=== PATIENT | female | born 1990 | race Caucasian/White ===

== ENCOUNTER → 2018-09-05 | Outpatient (CLI) | payer BC ==
[~2018-09-05] MED LIST: SULF1TAB38 PO
--- NOTE | 2018-09-05 21:37 | Diagnostic Imaging Report ---
EXAMINATION: Pelvic ultrasound. INDICATION: IUD strings not visualized. FINDINGS: There are no prior studies available for comparison. There is an IUD within the endometrium of the body/fundus of the uterus. The IUD seems to be in good position. The endometrial lining is not thickened. There is no focal mass involving the uterus to suggest a fibroid. The uterus measures 9.9 x 5.9 x 4.9 cm. Both ovaries are identified. Each ovary contains a few subcentimeter follicles. There is blood flow to each ovary and there is no sign of torsion. There is no solid pelvic mass or free fluid collection noted. IMPRESSION: 1. There is an IUD in the endometrium of the uterine body/fundus and the IUD seems to be in good position. 2. There is no acute pelvic abnormality noted. Dictated by: Dictated on workstation # [id number]
== END ==
LOC: RAD 12:49
PROVIDERS: ATTEND Nurse Practitioner Primary Care
DX: T83.89XA Other specified complication of genitourinary prosthetic devices, implants and grafts, initial encounter (principal); Z97.5 Presence of (intrauterine) contraceptive device
CPT/HCPCS: 76830; 76856

== ENCOUNTER 2018-10-13 05:21 | Outpatient (CLI) | payer BC ==
[~2018-10-13] VITALS: Ht 165.1 cm; Wt 49.9 kg
[2018-10-13] MEDS ORDERED: FLUO20TA28 PO (09:36)
== END 2018-10-13 09:42 | disposition home or self-care (01) ==
LOC: PREOP 05:21
PROVIDERS: ATTEND Obstetrics & Gynecology
DX: Z01.818 Encounter for other preprocedural examination (principal)

== ENCOUNTER → 2020-02-01 | Outpatient (CLI) | payer BC ==
[~2020-02-01] MED LIST changes: +ACHD5005 PO; +FLUO20TA28 PO; +IBUP-1773 PO
--- NOTE | 2020-02-01 16:11 | Diagnostic Imaging Report ---
INDICATION: with pelvic pain and bleeding. Intrauterine gestational sac and yolk sac present. Sac dimensions correlate with an age 6 weeks 3 days; age by last menstrual period 5 weeks 6 days. No measurable embryonic pole or definitive embryonic cardiac activity. No shayy-sac fluid collection. No extrauterine or adnexal abnormality. IMPRESSION: Intrauterine gestational sac and yolk sac measuring 6 weeks 3 days. No measurable pole at this time. Viability could be neither confirmed nor refuted. Serial beta hCG and/or short-term sonographic follow-up recommended. No evidence for shayy-sac hemorrhage or subchorionic collection. Dictated by: Dictated on workstation # [id number]
== END ==
LOC: RAD 14:54
PROVIDERS: ATTEND Nurse Practitioner Family
DX: R10.2 Pelvic and perineal pain (principal); N93.8 Other specified abnormal uterine and vaginal bleeding; F32.9 Major depressive disorder, single episode, unspecified; Z32.01 Encounter for pregnancy test, result positive
CPT/HCPCS: 76801; 76817